=== PATIENT | male | born 1955 | race Caucasian/White ===

== ENCOUNTER 2019-09-05 21:07 | Inpatient (IN) | payer OTHER, MEDICAID, SELFPAY ==
[~2019-09-05] VITALS: Ht 160 cm; Wt 56.2 kg
--- NOTE | 2019-09-05 21:07 | NUR ---
PT [facility] BLS. TAKEN TO BED 2
[2019-09-05 21:08] VITALS: BP 116/51
[2019-09-05] MEDS ORDERED: cefTRIAXone 1,000 MG in DEXT 5% MINI-BAG PLUS 50 ML IV ONE (21:35)
--- NOTE | 2019-09-05 22:22 | NUR ---
RAD AT BEDSIDE
[2019-09-05 22:25] LABS: BASOPHILS # (AUTO) 0.1 K/uL (0.00-0.22); BASOPHILS % (AUTO) 1.1 % (0.0-2.0); EOSINOPHILS # (AUTO) 0.1 K/uL (0-0.4); EOSINOPHILS % (AUTO) 2.2 % (0.0-4.0); HEMATOCRIT 43.9 % (36-52); HEMOGLOBIN 14.7 g/dL (12.0-18.0); LYMPHOCYTES # (AUTO) 1.5 K/uL (2.0-11.5); LYMPHOCYTES % (AUTO) 26.8 % (20.5-51.1); MEAN CORPUSCULAR HEMOGLOBIN 34 pg (27-31); MEAN CORPUSCULAR HGB CONC 34 g/dL (33-37); MEAN CORPUSCULAR VOLUME 101.3 fL (80-94); MONOCYTES # (AUTO) 0.3 K/uL (0.8-1.0); MONOCYTES % (AUTO) 5.4 % (1.7-9.3); NEUTROPHILS # (AUTO) 3.5 K/uL (1.8-7.7); NEUTROPHILS % (AUTO) 64.5 % (42.2-75.2); PLATELET COUNT (AUTO) 170 K/uL (140-450); RED BLOOD CELL COUNT(AUTO) 4.34 MIL/uL (4.20-6.10); RED CELL DISTRIBUTION WIDTH 13.1 % (11.6-13.7); WHITE BLOOD COUNT (AUTO) 5.4 K/uL (4.8-10.8)
--- NOTE | 2019-09-05 22:27 | NUR ---
64 YO MALE BIBA FOR SOB FROM [facility]. CONGESTION AND COUGH SINCE 1629. ALBUETEROL WAS GIVEN BY EMS. MED HX: DOWN SYNDROME, HIGH CHOLESTEROL, HTN, HYPOTHYROIDISM, AORTIC VALVE DISORDER, ANXIETY, NKA
[2019-09-05 22:43] LABS: ALBUMIN 2.8 g/dL (3.4-5.0); ANION GAP 9.6 (8-16); CARBON DIOXIDE 33.2 mmol/L (21-32); POTASSIUM 3.8 mmol/L (3.5-5.1); TOTAL BILIRUBIN 0.2 mg/dL (0.0-1.0)
[2019-09-05] MEDS ORDERED: cefTRIAXone 1,000 MG VIAL ONE (22:57)
--- NOTE | 2019-09-05 23:14 | NUR ---
Dr. Pierce examining patient.
[2019-09-05] MEDS ORDERED: AZITHROMYCIN 500 MG in DEXTROSE 5% 250 ML IV ONE (23:20)
[2019-09-06 02:15] VITALS: BP 100/67
--- NOTE | 2019-09-06 02:15 | NUR ---
Admitted from ER TO TELEMETRY UNIT , with chief complaint of SHORTNESS OF BREATH , 64 y/o ,Male, Cooperative, AWAKE, ALERT, DOES NOT RESPOND TO ANY QUESTIONS, JUST LOOK AT NURSE. ON 02 AT 2 LITERS VIA N/C, 02 SAT - 98%. RESPIRATION EVEN AND UNLABORED. LUNG SOUNDS DIMINISHED, NOTED WITH UNPRODUCTIVE COUGHING. IV SALINE LOCK AT THE RIGHT AC G20, AND LEFT HAND G20, PATENT AND INTACT. HEAD TO TOE ASSESSMENT DONE WITH SUZANNE HAYS, NOTED REDNESS ON BILATERAL PLANTAR AREAS OF BOTH FEET, ON COMPRESSOR STOCKINGS. NO APPEARANCE OF PAIN NOTED, FLACC -0.REORIENTED ON HOSPITAL SETTING. NEEDS REINFORCEMENT. oriented to call light, bed, phone,television, bathroom, smoking policy,visiting hours, procedures, ID bracelet on. Belongings list checked.
--- NOTE | 2019-09-06 02:30 | NUR ---
Patient will be admitted to care of DR ANDERSON. Admited to [facility] . Will go to room 126A. Belongings list completed.
--- NOTE | 2019-09-06 03:00 | NUR ---
Patient's Plan of Care was discussed and reviewed with FOAM RUBBER CURER: TITA ESCOBAR
--- NOTE | 2019-09-06 07:19 | NUR ---
CONDITIONED REMAIN STABLE. ENDORSED TO AM SHIFT NURSE FOR CONTINUITY OF CARE.
--- NOTE | 2019-09-06 07:20 | NUR ---
REPORT GIVEN BY NIGHT NURSE. PATIENT IN BED AWAKE, ALERT, ORIENTED X1. RESPIRATIONS EVEN AND UNLABORED. O2 ON @ 2L NC. O2 SAT 92%. NO DISTRESS NOTED. IV INTACT AND PATENT TO LEFT HAND AND RIGHT AC. PLANS OF CARE DISCUSSED. BED IN LOW POSITION. BED ALARM ON. CALL LIGHT WITHIN REACH.
--- NOTE | 2019-09-06 07:51 | NUR ---
PATIENT HAS BEEN SCREENED AND CATEGORIZED MODERATE NUTRITION RISK. PATIENT WILL BE SEEN WITHIN 3-5 DAYS OF ADMISSION. 09/08/19 09/10/[address]
[2019-09-06] MEDS ORDERED: MORPHINE SULFATE 2 MG/ML SYR IVP PRN (07:55)
[2019-09-06] MEDS ORDERED: DOCUSATE SODIUM 100 MG GELCAP PO PRN (07:55)
[2019-09-06] MEDS ORDERED: POTASSIUM CHLORIDE 10 MEQ TABER PO PRN ×2 (07:55→10:45)
[2019-09-06] MEDS ORDERED: ZOLPIDEM 5 MG TAB PO PRN (07:55)
[2019-09-06] MEDS ORDERED: LORazepam 2 MG/ML VIAL IM/IVP PRN (07:55)
[2019-09-06] MEDS ORDERED: HYDROcodone/APAP 5/325 MG 1 TAB TAB PO PRN (07:55)
[2019-09-06] MEDS ORDERED: ALBUTEROL HFA MDI 90 MCG/ACTUATION 8 GM INH PRN (07:55)
[2019-09-06] MEDS ORDERED: MAG SULF 2000 MG/WATER PREMIX 50 ML IV PRN ×2 (07:55→10:45)
[2019-09-06] MEDS ORDERED: ONDANSETRON 4 MG/2 ML VIAL IM/IVP PRN (07:55)
[2019-09-06] MEDS ORDERED: ACETAMINOPHEN 325 MG TAB PO PRN (07:55)
[2019-09-06 08:00] VITALS: BP 105/75
[2019-09-06] MEDS: ZINC SULF 220 MG CAP PO SCH ×2 (08:56→21:29)
[2019-09-06] MEDS: ASCORBIC ACID 500 MG TAB PO SCH (08:56)
[2019-09-06] MEDS: VITAMIN D 400 IU TAB PO SCH (08:57)
[2019-09-06] MEDS: NACL 0.9% 1,000 ML IV SCH ×2 (09:06→17:50)
--- NOTE | 2019-09-06 09:30 | NUR ---
AM MEDICATIONS GIVEN. PATIENT TOLERATED WELL. NO S/S OF DISTRESS NOTED. O2 ON @ 2L NC. CALL LIGHT WITHIN REACH.
[2019-09-06 10:15] LABS: BASOPHILS % (AUTO) 0.4 % (0.0-2.0); EOSINOPHILS # (AUTO) 0.1 K/uL (0-0.4); EOSINOPHILS % (AUTO) 0.8 % (0.0-4.0); HEMATOCRIT 47.3 % (36-52); HEMOGLOBIN 15.9 g/dL (12.0-18.0); LYMPHOCYTES # (AUTO) 0.9 K/uL (2.0-11.5); LYMPHOCYTES % (AUTO) 11.7 % (20.5-51.1); MEAN CORPUSCULAR HEMOGLOBIN 34 pg (27-31); MEAN CORPUSCULAR HGB CONC 34 g/dL (33-37); MEAN CORPUSCULAR VOLUME 102.3 fL (80-94); MONOCYTES # (AUTO) 0.4 K/uL (0.8-1.0); MONOCYTES % (AUTO) 4.5 % (1.7-9.3); NEUTROPHILS # (AUTO) 6.7 K/uL (1.8-7.7); NEUTROPHILS % (AUTO) 82.6 % (42.2-75.2); PLATELET COUNT (AUTO) 191 K/uL (140-450); RED BLOOD CELL COUNT(AUTO) 4.63 MIL/uL (4.20-6.10); RED CELL DISTRIBUTION WIDTH 13.2 % (11.6-13.7); WHITE BLOOD COUNT (AUTO) 8.1 K/uL (4.8-10.8)
[2019-09-06 10:31] LABS: PROTHROMBIN TIME 9.4 secs (10.8-13.4)
[2019-09-06 10:40] LABS: ALBUMIN 3.1 g/dL (3.4-5.0); ANION GAP 13.4 (8-16); CHOL/HDL RATIO 3.5 (1-4.5); CREATININE 0.9 mg/dL (0.6-1.3); MAGNESIUM 1.8 mg/dL (1.8-2.4); PHOSPHORUS 3.6 mg/dL (2.5-4.9); POTASSIUM 4.4 mmol/L (3.5-5.1); THYROID STIMULATING HORMONE 2.48 uIU/mL (0.34-3.74); TOTAL BILIRUBIN 0.3 mg/dL (0.0-1.0)
[2019-09-06] MEDS ORDERED: DEXTROSE 50% 50 ML SYR IVP PRN (10:40)
[2019-09-06 12:00] VITALS: BP 112/65
[2019-09-06] MEDS: BLOOD GLUCOSE MONITORING 1 DEV DEV FS SCH ×3 (12:01→21:25)
--- NOTE | 2019-09-06 12:30 | NUR ---
VS STABLE. O2 SAT 94%. PATIENT WITH HOB ELEVATED. ASSISTED WITH LUNCH. NO DISTRESS NOTED.
[2019-09-06] MEDS: INSULIN LISPRO SLIDING SCALE 100 UNITS/ML VIAL SUBQ PRN ×3 (12:37→21:26)
--- NOTE | 2019-09-06 14:30 | NUR ---
PATIENT REMOVES O2 NC. NC REPLACED. O2 MAINTAINED >92%. NO S/S OF DISTRESS NOTED. IV INTACT AND PATENT. CALL LIGHT WITHIN REACH.
[2019-09-06 16:00] VITALS: BP 99/68
--- NOTE | 2019-09-06 16:00 | NUR ---
SPOKE WITH PATIENT' SISTER DION WITH UPDATE.
--- NOTE | 2019-09-06 18:00 | NUR ---
PATIENT REMAINS STABLE. O2 ON @ 3L NC. NO S/S OF DISTRESS NOTED. BED IN LOW POSITION. CALL LIGHT WITHIN REACH.
--- NOTE | 2019-09-06 18:53 | NUR ---
PATIENT IN STABLE CONDITION. WILL ENDORSE TO NIGHT NURSE.
--- NOTE | 2019-09-06 19:05 | NUR ---
RECD. RESTING IN BED, AWAKE, MOST OF THE TIME DOES NOT TALK BUT OCCASIONALLY MUMBLES. UNABLE TO VERBALIZE NEEDS. RESPIRATION EVEN AND UNLABORED. ON 02 AT 2 LITERS VIA N/C, 02 SAT - 92%. WITH OCCASIONAL UNPRODUCTIVE COUGHING. SAFETY MEASURES ENFORCED. BED ON ALARM. PATIENT IS INCONTINENT. REORIENTED TO HOSPITAL SETTING. PLAN OF CARE DISCUSSED. NEEDS REINFORCEMENT. NO APPEARANCE OF PAIN NOTED, FLACC-0.
[2019-09-06 20:00] VITALS: BP 103/64
--- NOTE | 2019-09-06 21:29 | NUR ---
DUE MEDICATIONS GIVEN WITH APPLE SAUCE, TOLERATED WELL.
[2019-09-06] MEDS: AZITHROMYCIN 250 MG in DEXTROSE 5% 250 ML IV SCH (22:20)
[2019-09-06] MEDS ORDERED: AZITHROMYCIN 500 MG INJ VIAL IV ONE (22:22)
--- NOTE | 2019-09-06 22:39 | NUR ---
Patient's Plan of Care was discussed and reviewed with PICKER / PACKER: TITA ESCOBAR
[2019-09-07] VITALS: BP 92/47
--- NOTE | 2019-09-07 | NUR ---
TAKING OF 02 CANNULA. REORIENTED TO HOSPITAL SETTING. ADVISED NOT TO TAKE IT OFF, 90% WHEN 02 IS NOT IN PLACED.
--- NOTE | 2019-09-07 02:00 | NUR ---
AWAKE IN BED, PUT BACK 02 CANNULA IN PLACED. 02 SAT GOES BACK TO 94%.
[2019-09-07] MEDS: NACL 0.9% 1,000 ML IV SCH ×3 (03:51→23:51)
[2019-09-07 04:00] VITALS: BP 113/70
--- NOTE | 2019-09-07 04:00 | NUR ---
SLEEPING COMFORTABLY IN BED.
[2019-09-07] MEDS: BLOOD GLUCOSE MONITORING 1 DEV DEV FS SCH ×4 (06:23→21:00)
[2019-09-07 07:16] LABS: T4 (THYROXINE) 6.6 ug/dL (4.5-12.0)
--- NOTE | 2019-09-07 07:30 | NUR ---
AWAKE IN BED, RESPIRATORY STATUS REMAIN STABLE. ENDORSED TO SUZANNE SALGADO FOR CONTINUITY OF CARE.
--- NOTE | 2019-09-07 07:31 | NUR ---
RECEIVED REPORT FROM BAG HANGER NURSE. PATIENT LYING DOWN IN BED. NO DISTRESS NOTED. AAOX1, MUMBLES, CALM, COOPERATIVE, SKIN COLOR APPROPRIATE TO ETHNICITY, WARM TO TOUCH, SKIN INTACT. RESPIRATIONS EVEN, UNLABORED, ON O2 2L/MIN VIA NC. IV SITE INTACT, PATENT, AND INFUSING IVF PER MD ORDERS. REVIEWED PLAN OF CARE WTALLEN PATIETN. UNABLE TO COMPREHEND. SAFETY MEASURES IN PLACE, CALL LIGHT WITHIN REACH. WILL CONTINUE TO MONITOR.
[2019-09-07 08:00] VITALS: BP 134/68
[2019-09-07] MEDS: VITAMIN D 400 IU TAB PO SCH (09:08)
[2019-09-07] MEDS: ASCORBIC ACID 500 MG TAB PO SCH (09:08)
[2019-09-07] MEDS: ZINC SULF 220 MG CAP PO SCH ×2 (09:08→21:56)
--- NOTE | 2019-09-07 09:10 | NUR ---
SCHEDULED MEDICATIONS DUE GIVEN. WILL CONTINUE TO MONITOR.
--- NOTE | 2019-09-07 10:59 | NUR ---
ASSISTANT PROPERTY MANAGER NOTE: YUDY CONTACTED PATIENT'S SISTER MARGARITO DAVIS [phone] TO COMPLETE ASSESSMENT. YUDY WAS UNABLE TO MEET PATIENT AT BEDSIDE. SW LEFT .
--- NOTE | 2019-09-07 11:30 | NUR ---
ASSISTED STEEL HANGER IN CLEANING AND REPOSITIONING PATIENT. WILL CONTINUE TO MONITOR.
[2019-09-07 12:00] VITALS: BP 130/70
--- NOTE | 2019-09-07 12:57 | NUR ---
DISCHARGE PLANNING: THIS IS A 64 Y/O MALE PATIENT FROM [facility], WHO WAS BROUGHT IN DUE TO NASAL CONGESTION AND COUGH. PAST MEDICAL HISTORY INCLUDE HTN, HYPERLIPIDEMIA, HYPOTHYROIDISM AND DOWN SYNDROME. INITIAL DIAGNOSIS OF SOB AND HYPOXIA. ON O2 AT 2LPM/NC, O2 SAT 91%. ON AZITHROMYCIN, ROCEPHIN. COVID TEST NEGATIVE X1. DC PLAN BACK TO [facility] ONCE STABLE. Addendum: 09/07/19 at 1543 by Carmen Delgado CM RECEIVED A CALL FROM CHARGE INQUIRING IF HOW MANY COVID TESTING THE FACILITY IS REQUIRING. CONTACTED THE NUMBER ON THE FACE SHEET [phone], LINE IS NOT IN SERVICE ANYMORE. CONTACTED THE NUMBER THAT THE PATIENT'S SISTER DION PROVIDED THE SW [phone], SAME THING LINE IS NOT IN SERVICE ANYMORE. SEARCH ON LINE FOR [employer] PHONE NUMBER [phone], LINE IS DISCONNECTED. CONTACTED [facility] AT [phone], ABLE TO SPEAK TO GIO. SHE CONFIRMED THAT THEY ARE CONNECTED WITH [employer] AND SHE PROVIDED ME WITH PHONE NUMBER [phone]. CONTACTED THE PROVIDED NUMBER ABLE TO SPEAK TO JEREMIE MCQUEEN. PER MICHELLE SHE IS NOT AWARE IF HOW MANY COVID TESTING THEY REQUIRE AND HAVE TO CONTACT DEIRDRE AT [phone]. PER DEIRDRE, WE MIGHT WELL DO 2 COVID NEGATIVE BEFORE TAKING THE PATIENT BACK. SHE ALSO STATED THEIR REQUIREMENT ALWAYS CHANGES. SHE ALSO STATED PATIENT IS UNDER THE [facility] AND THE ROAD PACKER OPERATOR IS YARIEL MUNOZ AT [phone]. PER DEIRDRE THEY HAVE TO COMMUNICATE WITH THE [facility] BEFORE THEY CAN TAKE THE PATIENT BACK AND THE PROCESS WILL TAKE UP TO 2 BUSINESS DAYS. I INFORMED HER THAT THE TENTATIVE DC PLAN WILL BE TOMORROW. SHE STATED SHE WILL REACH OUT TO YARIEL MUNOZ OF . CONTACTED YARIEL MUNOZ AT THE PROVIDED NUMBER, NO ANSWER. LEFT MESSAGE WITH MY CONTACT INFORMATION. WILL FOLLOW UP. CHARGE NURSE JANAE MADE AWARE THAT PATIENT NEEDS 2 COVID NEGATIVES BEFORE THE RESIDENTIAL CARE CAN TAKE HIM BACK. Addendum: 09/07/19 at 1602 by Carmen Delgado CM RECEIVED A CALL BACK FROM YARIEL MUNOZ OF [facility], UPDATED HIM OF THE PATIENT'S CONDITION AND TENTATIVE PLAN OF DC WILL BE TOMORROW. PER YARIEL IT IS OK WITH HIM FOR THE PATIENT TO GO BACK TO [facility] DEIRDRE IS ABLE TO TAKE THE PATIENT BACK. I ASKED HIM IF HE WANTS CLINICALS SENT OVER TO HIM, HE STATED TO JUST SEND IT TO DEIRDRE. RECEIVED A CALL BACK FROM AIDE PALACIOS OF [facility]. SHE STATED ONE COVID NEGATIVE IS OK LONG 24 HOURS BEFORE DC. SHE ALSO REQUESTED TO SEND CLINICALS TO [phone]. CLINICALS SENT TO DEIRDRE [phone] AND AIDE [phone]. Addendum: 09/07/19 at 1604 by Carmen Delgado CM TAMMY OF ADMITTING MADE AWARE TO UPDATE PHONE NUMBER FOR [employer] [facility]. Addendum: 09/08/19 at 1111 by Sonia Vigil CM RECEIVED DISCHARGE ORDER FOR PATIENT SPOKE TO SUZANNE NOBLE [phone]. SHE IS GOING TO REACH OUT TO THE AUTOMOTIVE PRODUCT SPECIALIST [employer] [phone] TO VERITY PATIENT CAN RETURN BACK TODAY. Addendum: 09/08/19 at 1119 by Sonia Vigil CM FOLLOWED UP WITH DEIRDRE SHE REACHED OUT TO ROAD PACKER OPERATOR YARIEL MUNOZ [phone] TO SEE IF HE HAS APPROVED RETURN BACK TO [facility] AND CARE SHE STATED THAT HE DID NOT ANSWER BUT SHE LEFT A VOICEMAIL Addendum: 09/08/19 at 1400 by Sonia Vigil CM SPOKE TO ROAD PACKER OPERATOR YARIEL HE STATED THAT HE WAS CAMPING SO DIRECTED ME TO FOLLOW UP WITH NURSE PRINCESS DONAHUE [phone]. F/U WITH SHE ASKED THAT I FAX DISCHARGE SUMMARY TO [phone]. FAXED REQUEST AND FOLLOWED UP. SHE RECEIVED FAX AND STATED THAT PATIENT CAN RETURN BACK. SHE WILL CONTACT THE FACILITY TO NOTIFY THEM Addendum: 09/08/19 at 1432 by Sonia Vgiil CM PATIENT WILL BE RETURNING TO [facility] TODAY. TRANSPORTATION HAS BEEN SET UP WITH [facility] FOR 6:00 PM. RECEIVED THE OKAY FROM ROR ENGINEER ASHLIE TO USE [facility]. PATIENT DOES NOT HAVE AVAILABLE FAMILY MEMBER TO PROVIDED TRANSPORTATION AND THE [facility] STATED THEY DO NOT PROVIDE TRANSPORTATION. NOTIFIED SUZANNE LOCKETT Addendum: 09/08/19 at 1459 by Sonia Vigil CM WILLIE FROM [employer] CALLED BACK AND STATED THAT THEY COULD BE HERE BY 4:00 PM. NOTIFIED SUZANNE LOCKETT AND [facility] OF THE TIME CHANGE.
--- NOTE | 2019-09-07 13:10 | NUR ---
AGRICULTURAL EDUCATION PROFESSOR NOTE: Patient's Orientation Unable To Assess Information Provided By MARGARITO CUEVA Comments SW WAS UNABLE TO MEET PATIENT AT BEDSIDE DUE TO MEDICAL CONDITION. PER MARGARITO, PATIENT IS A RESIDENT OF [facility] [phone]. Nursing Tech, Realtionship and Phone Number MARGARITO CUEVA [phone] Healthcare Power of Threshing Department Supervisor No Does Patient Have a POLST No Identifying Problems No Social Work Triggers Is A Social Work Consult Needed No Mandate Report Filed No Explanation Of Identifying Problems PATIENT IS A 64-YEAR-OLD MALE ADMITTED FOR SOB. PATIENT HAS PMHX OF CARDIAC DISORDERS AND SEVERE DOWN SYNDROME. Admitted From Residential Care Pre-Admission Level Of Functioning Status Total Care Prior Resources/Services Used In Last 12 Months No Prior Resources Used Prior DME Wheelchair Living Situation Asst'd Living/Board &Care Patient Had Caregiver Yes Home Support Has Hired Caregivers Financial Issues No Known Financial Issue Referral To The Financial Counselor Needed No Factors/Needs Assist Living/B & C Plcmt Explanation And Or Other Factors Affecting/Possible DC Needs [facility] - [phone] Pt/Rep Participated In Discharge Plan Yes Patient/Family Agress With Discharge Plan Yes Discharge Plan Comments TENTATIVE DISCHARGE PLAN IS FOR PATIENT TO RETURN TO [facility]. DC Plan Status Initiated
[2019-09-07] MEDS: CHLORHEXADINE GLUC 2% CLOTH TP SCH (14:33)
[2019-09-07] MEDS: MUPIROCIN 2% OINT 22 GM TUBE TP SCH (14:33)
[2019-09-07] MEDS: INSULIN LISPRO SLIDING SCALE 100 UNITS/ML VIAL SUBQ PRN ×2 (14:33→18:02)
--- NOTE | 2019-09-07 14:40 | NUR ---
SCHEDULED MEDICATIONS DUE GIVEN. WILL CONTINUE TO MONITOR.
[2019-09-07 16:00] VITALS: BP 134/77
--- NOTE | 2019-09-07 18:03 | NUR ---
SCHEDULED MEDICATIONS DUE GIVEN. WILL CONTINUE TO MONITOR.
--- NOTE | 2019-09-07 19:25 | NUR ---
RECEIVED BEDSIDE REPORT FROM DAY SHIFT NURSE. PT IS A&O X 1. PT HAS A HX OF MENTAL DISABILITY. SKIN IS WARM, DRY, AND INTACT. PT IS ON RA AT 94% O2 SAT. PT IS INCONTINENT WITH CHUCKS FOR DIAPER. LAST BM WAS 09/06. PT IS ON TELE MONITORING WITH SR. IV IS IN THE RIGHT HAND 20 GAUGE AND LEFT AC 20 GAUGE RUNNING NS AT 100 ML PER HOUR PER ORDER. BED IS IN THE LOWEST POSITION AND CALL LIGHT IS WITHIN REACH. PLAN OF CARE DISCUSSED. AWAITING ONE MORE COVID 19 TEST. PT IS POSITIVE FOR MRSA NARES. DROPLET AND CONTACT PRECAUTIONS IN PLACE.
--- NOTE | 2019-09-07 19:27 | NUR ---
GAVE REPORT TO CARTOGRAPHIC AIDE NURSE FOR CONTINUITY OF CARE. PATIENT IN STABLE CONDITION.
[2019-09-07 20:00] VITALS: BP 123/53
--- NOTE | 2019-09-07 21:30 | NUR ---
PT IS AWAKE AND ALERT. A& O X1. LAYING IN SEMI FOWLERS POSITION WATCHING TV. PT IS CALM AT THE MOMENT. ON RA WITH O2 SAT AT 94%. FLACC SCALE OF 0. BED IN LOWEST POSITION AND CALL LIGHT WITHIN REACH.
[2019-09-07] MEDS: AZITHROMYCIN 250 MG in DEXTROSE 5% 250 ML IV SCH (23:00)
--- NOTE | 2019-09-07 23:15 | NUR ---
PT'S SOILED LINENS ARE CHANGED AND PT IS REPOSITIONED IN BED. PT TOLERATED THE CHANGING WELL. PT IS CALM AND RESTING. IV FLUIDS ARE RUNNING AND IV IS PATENT. NO SWELLING OR SIGNS OF INFECTION AT THE SITE. PT WAS GIVEN APPLESAUCE. PT IS NOW RESTING.
[2019-09-08] VITALS: BP 135/60
--- NOTE | 2019-09-08 01:21 | NUR ---
PT WAS REPOSITIONED AND SOILED LINENS WERE CHANGED. PT IS IN STABLE CONDITION.
--- NOTE | 2019-09-08 03:19 | NUR ---
PT IS STABLE. NO SIGNS OF DISTRESS. RESPIRATIONS ARE EVEN AND UNLABORED. PT IS LAYING IN SEMI FOWLERS. DIAPER IS DRY.
[2019-09-08 04:00] VITALS: BP 122/81
--- NOTE | 2019-09-08 05:14 | NUR ---
PT'S SOILED LINENS WERE CHANGED AND PT WAS REPOSITIONED. IV WAS REINFORCED R/T PATIENT TRYING TO PULL OUT LINE. PT IS INTACT AND PATENT INFUSING NS AT 100 ML PER HOUR PER ORDER. PT IS IN STABLE CONDITION.
--- NOTE | 2019-09-08 06:17 | NUR ---
BS CHECK WAS 94. PT WAS GIVEN APPLESAUCE. PT IS STABLE AND RESTING.
[2019-09-08] MEDS: BLOOD GLUCOSE MONITORING 1 DEV DEV FS SCH ×2 (06:32→11:30)
--- NOTE | 2019-09-08 07:15 | NUR ---
ENDORSED PT TO DAY SHIFT NURSE FOR CONTINUITY OF CARE. PT IS STABLE AT THIS TIME.
--- NOTE | 2019-09-08 07:20 | NUR ---
RECEIVED REPORT FROM NIGHTSHIFT NURSE. PT RESTING IN BED. FLACC 0. RESPIRATIONS EVEN AND UNLABORED WITH NO SOB AND RESPIRATORY DISTRESS. IV SITE IN RIGHT HAND 22G AND RAC 20G CLEAN, DRY, AND INTACT. SKIN WARM AND DRY TO TOUCH. SAFETY MEASURES IN PLACE. WILL CONTINUE TO MONITOR
[2019-09-08 08:00] VITALS: BP 116/74
--- NOTE | 2019-09-08 08:10 | NUR ---
PT PULLED OUT BOTH IV SITES. NEW IV INSERTED IN RIGHT WRIST 22G IS CLEAN, DRY AND INTACT. SAFETY MEASURES IN PLACE. WILL CONTINUE TO MONITOR
[2019-09-08] MEDS: VITAMIN D 400 IU TAB PO SCH (09:00)
[2019-09-08] MEDS: ZINC SULF 220 MG CAP PO SCH (09:00)
[2019-09-08] MEDS: ASCORBIC ACID 500 MG TAB PO SCH (09:00)
[2019-09-08] MEDS: NACL 0.9% 1,000 ML IV SCH (10:19)
--- NOTE | 2019-09-08 10:19 | NUR ---
ADMINISTERED SCHED MED PRESCRIBED PER MD ORDER. PT TOLERATED WELL. MEDICATION EDUCATION PERFORMED. PT APHASIC AND UNABLE TO VERBALIZE UNDERSTANDING. SAFETY MEASURES IN PLACE. WILL CONTINUE TO MONITOR
[2019-09-08] MEDS ORDERED: ALBU0.0912 INH (10:25)
[2019-09-08] MEDS ORDERED: LEVO500T2 PO (10:25)
--- NOTE | 2019-09-08 11:30 | NUR ---
PT BLOOD SUGAR IS 216. PRN INSULIN WILL BE ADMINISTERED WITH NEXT MEAL. SAFETY MEASURES IN PLACE. WILL CONTINUE TO MONITOR
[2019-09-08 12:00] VITALS: BP 124/76
[2019-09-08] MEDS: INSULIN LISPRO SLIDING SCALE 100 UNITS/ML VIAL SUBQ PRN (13:12)
[2019-09-08] MEDS: CHLORHEXADINE GLUC 2% CLOTH TP SCH (14:53)
[2019-09-08] MEDS: MUPIROCIN 2% OINT 22 GM TUBE TP SCH (14:53)
--- NOTE | 2019-09-08 14:57 | NUR ---
RECEIVED CALL THAT PATIENT WILL BE LEAVING AT 4PM VIA [employer] SAFETY MEASURES IN PLACE. WILL CONTINUE TO MONITOR
[2019-09-08 14:59] VITALS: BP 124/76
--- NOTE | 2019-09-08 16:09 | NUR ---
[employer] HERE TO VETERINARY LIVESTOCK INSPECTOR PATIENT. GAVE THEM DISCHARGE PAPERWORK. PT UNABLE TO SIGN FOR HIMSELF.REMOVED INTACT IV CANNULA, ID BAND, AND TELE BOX. RETURNED TO BUSINESS TECHNOLOGY ARCHITECT. PT VACCINES UP TO DATE. PT CHANGED INTO HIS OWN CLOTHES AND GATHERED HIS BELONGINGS. PT IS STABLE TO RETURN HOME.
== END 2019-09-08 16:10 | disposition home or self-care (01) | DRG 194 ==
LOC: MED 21:07 → MTU 23:19 → MMU 09-06 01:56
DX: J18.9 Pneumonia, unspecified organism (principal); E44.0 Moderate protein-calorie malnutrition; I10 Essential (primary) hypertension; R06.03 Acute respiratory distress; E11.65 Type 2 diabetes mellitus with hyperglycemia; E03.9 Hypothyroidism, unspecified; F41.9 Anxiety disorder, unspecified; E78.5 Hyperlipidemia, unspecified; R62.50 Unspecified lack of expected normal physiological development in childhood; Z68.22 Body mass index [BMI] 22.0-22.9, adult; Z03.818 Encounter for observation for suspected exposure to other biological agents ruled out
CPT/HCPCS: 36415; 71045; 80053; 82150; 82948; 83036; 83605; 83615; 83690; 83735; 83880; 84100; 84436; 84443; 84484; 85025; 85379; 85610; 85651; 85730; 86140; 87040; 87081; 93005; 99285; J0456; J0696; J1644; J2060; J7030; J7060; Q0092; U0003-CS